=== PATIENT | male | born 1975 | race Caucasian/White ===

== ENCOUNTER 2021-12-08 00:37 | Day surgery (SDC) | payer BC, SELFPAY ==
[2021-11-24 12:48] VITALS: BMI 31.9
[2021-12-08 09:32] VITALS: BP 144/99; PULSE 65; RESP 16; TEMP 36.1; O2SAT 98
[2021-12-08] MEDS: LACTATED RINGERS 1,000 ML 150 ML IV CONT (09:40)
--- NOTE | 2021-12-08 09:40 | WPDANESEPPF ---
Anes - Initial Pre Proc Eval Procedure: Operation Date: 12/08/21 10:30 Proposed Procedures p Screening Colonoscopy - Alexis Mcclellan MD Date/Time: 12/08/21 09:40 Surgeon: Alexis Mcclellan MD Pre Op Diagnosis: neoplasm screening Patient Data Age: 46 Gender: M Height: 1.83 m Weight: 107.2 kg Last Vital Signs Temp 36.1 C L 12/08/21 09:32 Pulse 65 12/08/21 09:32 Resp 16 12/08/21 09:32 BP 144/99 H 12/08/21 09:32 Pulse Ox 98 12/08/21 09:32 Allergies Allergy/AdvReac Type Severity Reaction Status Date / Time No Known Allergies Allergy Verified 12/08/21 09:31 Home Medications Medication Instructions Recorded Confirmed Type metoprolol succinate 50 mg 50 mg PO DAILY #90 tablet 01/14/21 12/08/21 Rx tablet,extended release 24 hr Patient hx anesthesia problems: none Family hx anesthesia problems: none Results Review: All pre-operative results and documents have been reviewed as part of the pre-operative evaluation. [facility] Surgical History Surgical History (Updated 12/08/21 @ 09:42 by Gumaro Caceres MD) History of orchiectomy Social History Social History Smoking status: Never smoker Alcohol intake: current Living arrangements: with family Spiritual care concerns: No Anes - Eval Final PreProcedure Day of Procedure 12/08/21 09:40 Patient weight: obese Heart: regular rate and rhythm Lungs: clear to auscultation Airway: Mallampati scale class II Neurological: alert and oriented Last oral intake: >/= 8 hours ASA classification: II Emergent: no Anesthetic plan: proceed Anesthesia type and monitoring: general GIVS and standard monitoring Results Review: All pre-operative results and documents have been reviewed as part of the pre-operative evaluation. Informed Consent: The patient's anesthetic plan and its attendant risks and benefits were discussed with the patient/family/POA. Questions were solicited and answers provided to the satisfaction of the patient/family/POA.
--- NOTE | 2021-12-08 09:58 | P.CONGI_ITS ---
Assessment and Plan Assessment and plan (1) Colon cancer screening: Code(s): Z12.11 - Encounter for screening for malignant neoplasm of colon Status: Acute Assessment and Plan: Patient presents for neoplasia screening colonoscopy. Appears to be at average risk for colon polyps. Further recommendations will be given after endoscopy. GI Consult Note Consult date/time: 12/08/21 09:58 HPI: Dylan Lundberg is a 46 year old male Presents for screening colonoscopy. Patient's current weight appetite and bowel movements are normal. Patient denies abdominal pain. He has had no bleeding. Family history is noncontributory. Patient presents today for neoplasia screening colonoscopy. Review of Systems Review of Systems: All systems reviewed & are unremarkable except as noted in HPI and below PMFSH Surgical History Surgical History (Updated 12/08/21 @ 09:42 by Gumaro Caceres MD) History of orchiectomy Social History Social History Smoking status: Never smoker Alcohol intake: current Living arrangements: with family Spiritual care concerns: No Meds Home Medications and Allergies Home Medications Medication Instructions Recorded Confirmed Type metoprolol succinate 50 mg 50 mg PO DAILY #90 tablet 01/14/21 12/08/21 Rx tablet,extended release 24 hr Allergies Allergy/AdvReac Type Severity Reaction Status Date / Time No Known Allergies Allergy Verified 12/08/21 09:31 Vital Signs Vital Signs - 24 hr 12/08/21 09:32 Temperature 97.0 F L Pulse Rate 65 Respiratory Rate 16 Blood Pressure 144/99 H Pulse Oximetry 98 Exam Narrative: Physical exam reveals patient to be alert. Vital signs stable. HEENT exam is unremarkable. Patient is anicteric. Lungs are clear to auscultation and percussion. Heart is without murmur or extra sounds. Abdomin al exam bowel sounds are present soft nontender with no organomegaly. Digital external rectal exam is normal.
[2021-12-08 10:22] VITALS: BP 145/83; PULSE 45; O2SAT 98
[2021-12-08 10:32] VITALS: BP 146/80; PULSE 45; RESP 18; O2SAT 99
[2021-12-08 10:42] VITALS: BP 145/85; PULSE 48; RESP 20; O2SAT 99
== END 2021-12-08 10:56 | disposition home or self-care (01) ==
PROVIDERS: PCP Family Medicine; Visit Provider Internal Medicine Gastroenterology
PROC: 0DJD8ZZ Inspection of Lower Intestinal Tract, Via Natural or Artificial Opening Endoscopic (ICD-10-PCS; CPT 45378; principal; 2021-12-08 10:30)
DX: Z12.11 Encounter for screening for malignant neoplasm of colon (principal); K64.8 Other hemorrhoids; E66.9 Obesity, unspecified; Z68.32 Body mass index [BMI] 32.0-32.9, adult
CPT/HCPCS: 45378; J2704; J7120